=== PATIENT | female | born 1940 | race African-American/Black ===

== ENCOUNTER → 2018-06-08 | Outpatient (CLI) | payer MEDICARE ==
--- NOTE | 2018-06-08 12:45 | Diagnostic Imaging Report ---
Frontal and lateral views of the chest. HISTORY: Simple chronic bronchitis, chronic COMPARISON: None available. DISCUSSION: Lungs: Prominence of the peribronchial interstitial markings. Mild left basilar volume loss. No evidence of a consolidative pneumonia or pulmonary alveolar edema. Pleura: No pleural effusion or pneumothorax. Heart and mediastinum: The cardiomediastinal silhouette appears unremarkable. Bones and soft tissues: Diffuse scattered atherosclerotic vascular calcifications. IMPRESSION: 1. Findings compatible with the provided history of bronchitis. 2. Mild left basilar atelectasis versus scarring. Signed by: Dr. Agapito Peña D.O., M.M.M. on 06/08/2018 12:42 PM
== END ==
LOC: RAD 12:07
PROVIDERS: ATTEND Internal Medicine
DX: J41.0 Simple chronic bronchitis (principal)
CPT/HCPCS: 71046

== ENCOUNTER → 2018-07-10 | Outpatient (CLI) | payer MEDICARE | LOC: US 07:23 | PROVIDERS: ATTEND Internal Medicine | DX: I70.1 Atherosclerosis of renal artery (principal) | CPT/HCPCS: 93976 ==

== ENCOUNTER → 2018-10-05 | Outpatient (CLI) | payer MEDICARE | LOC: MAMMO 10:04 | PROVIDERS: ATTEND Family Medicine | DX: Z12.31 Encounter for screening mammogram for malignant neoplasm of breast (principal) | CPT/HCPCS: 77067 ==

== ENCOUNTER → 2022-02-01 | Outpatient (CLI) | payer MEDICARE | LOC: DX 09:08 | PROVIDERS: ATTEND Family Medicine | DX: Z12.31 Encounter for screening mammogram for malignant neoplasm of breast (principal); M85.88 Other specified disorders of bone density and structure, other site | CPT/HCPCS: 77067; 77080 ==

== ENCOUNTER → 2022-02-25 | Outpatient (CLI) | payer MEDICARE | LOC: MAMMO 08:56 | PROVIDERS: ATTEND Family Medicine | DX: R92.1 Mammographic calcification found on diagnostic imaging of breast (principal) ==